=== PATIENT | female | born 1955 | race Caucasian/White ===

== ENCOUNTER 2021-02-13 14:01 | Outpatient (CLI) | payer MEDICARE | END 2021-02-13 14:02 | disposition home or self-care (01) | LOC: CSHMAMMO 14:01 | PROVIDERS: ATTEND Physician Assistant | DX: Z12.31 Encounter for screening mammogram for malignant neoplasm of breast (principal) | CPT/HCPCS: 77063; 77067 ==

== ENCOUNTER 2022-03-17 13:03 | Outpatient (CLI) | payer MEDICARE | END 2022-03-17 13:04 | disposition home or self-care (01) | LOC: CSHMAMMO 13:03 | PROVIDERS: ATTEND Physician Assistant | DX: Z12.31 Encounter for screening mammogram for malignant neoplasm of breast (principal); Z13.820 Encounter for screening for osteoporosis; Z78.0 Asymptomatic menopausal state; M85.88 Other specified disorders of bone density and structure, other site | CPT/HCPCS: 77063; 77067; 77080 ==

== ENCOUNTER 2023-04-23 10:35 | Outpatient (CLI) | payer MEDICARE | END 2023-04-23 10:36 | disposition home or self-care (01) | LOC: CSHMAMMO 10:35 | PROVIDERS: ATTEND Physician Assistant | DX: Z12.31 Encounter for screening mammogram for malignant neoplasm of breast (principal) | CPT/HCPCS: 77063; 77067 ==

== ENCOUNTER 2024-03-01 08:41 | Outpatient (CLI) | payer MEDICARE | END 2024-03-01 08:42 | disposition home or self-care (01) | LOC: CSHCP 08:41 | PROVIDERS: ATTEND Internal Medicine | DX: R06.09 Other forms of dyspnea (principal) | CPT/HCPCS: 94060; 94664; 94726; 94729; 94760 ==

== ENCOUNTER 2024-07-22 10:20 | Outpatient (CLI) | payer MEDICARE | END 2024-07-22 10:21 | disposition home or self-care (01) | LOC: CSHMAMMO 10:20 | PROVIDERS: ATTEND Physician Assistant | DX: Z78.0 Asymptomatic menopausal state (principal); M85.88 Other specified disorders of bone density and structure, other site | CPT/HCPCS: 77080 ==

== ENCOUNTER 2025-06-12 10:05 | Outpatient (CLI) | payer MEDICARE | END 2025-06-12 10:06 | disposition home or self-care (01) | LOC: CSHMAMMO 10:05 | PROVIDERS: ATTEND Physician Assistant | DX: Z12.31 Encounter for screening mammogram for malignant neoplasm of breast (principal) | CPT/HCPCS: 77063; 77067 ==